=== PATIENT | female | born 1995 | race Asian ===

== ENCOUNTER 2018-06-27 14:57 | Emergency (ER) | payer MEDICAID ==
[~2018-06-27] VITALS: Ht 154.9 cm; Wt 45.1 kg
[2018-06-27 15:45] LABS: BASOPHIL % 0.5 % (0-2); PLATELET COUNT 279 x10^3mcL (130-400); RED CELL DISTRIBUTION WIDTH 12.7 % (11.5-14.5)
[2018-06-27 18:44] VITALS: BP 112/75
== END 2018-06-27 18:44 | disposition home or self-care (01) ==
LOC: ED 14:57
PROVIDERS: Emergency Medicine
DX: O20.0 Threatened abortion (principal)
CPT/HCPCS: 36415

== ENCOUNTER 2018-06-29 12:11 | Emergency (ER) | payer MEDICAID ==
[~2018-06-29] VITALS: Ht 149.9 cm; Wt 45.8 kg
[2018-06-29 12:15] VITALS: Ht 149.9 cm; Wt 45.8 kg
[2018-06-29 12:37] LABS: BASOPHIL % 0.3 % (0-2); PLATELET COUNT 253 x10^3mcL (130-400); RED CELL DISTRIBUTION WIDTH 12.8 % (11.5-14.5)
[2018-06-29 13:30] VITALS: BP 136/77
== END 2018-06-29 13:30 | disposition home or self-care (01) ==
LOC: ED 12:11
PROVIDERS: Emergency Medicine
DX: O03.9 Complete or unspecified spontaneous abortion without complication (principal); Z88.0 Allergy status to penicillin
CPT/HCPCS: 36415